=== PATIENT | female | born 1940 | race Caucasian/White ===

== ENCOUNTER 2017-05-19 18:47 | Emergency (ER) | payer OTHER ==
[2017-05-19] MEDS ORDERED: ONDANSETRON 4 MG/2 ML VIAL ONE (19:55)
[2017-05-19 20:14] LABS: Absolute Lymphocytes (CBC) 0.6 K/uL (0.7-4.9); Absolute Monocytes 0.3 K/uL (0.1-1.3); Absolute Neutrophil 7.2 K/uL (1.8-8.0); Basophils % 0.8 % (0-1.3); Eosinophils % 0.1 % (0-4.4); Hematocrit 33.1 % (36.0-45.0); Lymphocytes % 7.5 % (15.3-44.8); MCH 23.8 pg (27.0-35.0); MCV 75.3 fL (80-100); MPV 7.9 fL (7.6-11.3); Monocytes % 3.6 % (3.3-12.3); RBC Red Blood Cell Count 4.39 M/uL (3.86-4.86)
[2017-05-19 20:18] LABS: Protime INR 1.2
[2017-05-19 20:20] LABS: Potassium 4.1 mEq/L (3.6-5.0)
[2017-05-19 20:28] LABS: Albumin 3.3 g/dL (3.2-5.5); Bilirubin Direct 0.5 mg/dL (0-0.2); Bilirubin Total 1.3 mg/dL (0.3-1.2); Magnesium 1.9 mg/dL (1.8-2.5); Protein, Total 6.8 g/dL (6.0-8.3)
--- NOTE | 2017-05-19 20:48 | RAD REPORT ---
EXAM DESCRIPTION: Marie Single View05/19/2017 8:26 pm CLINICAL HISTORY: sob COMPARISON: May 09 FINDINGS: Small bilateral pleural effusions are present. Mild bilateral interstitial lung opacities are seen. The heart is mildly to moderately enlarged. IMPRESSION: Mild CHF
[2017-05-19 20:53] LABS: Urine Blood TRACE (NEG); Urine Glucose NEGATIVE (NEG); Urine Protein TRACE (NEG); Urine Specific Gravity 1.025 (1.005-1.030); Urine pH 6.5 (5.0-7.0)
[2017-05-19 20:57] LABS: Blood Morphology Comment NOT SEEN (NOT SEEN); Platelet Estimate ADEQ; Urine White Blood Cell Casts OK
[2017-05-19] MEDS ORDERED: FUROSEMIDE 20 MG/ 2ML VIAL ONE (21:30)
[2017-05-19] MEDS ORDERED: FUROSEMIDE 40 MG/4 ML VIAL ONE (21:30)
--- NOTE | 2017-05-19 22:01 | ER ---
Nurse's Notes [facility] Name: Haleigh Gutierrez Age: 77 yrs Sex: Female : 1940 Arrival Date: 05/19/2017 Time: 18:48 Bed 14 Private MD: Conner Landis Diagnosis: Chronic combined systolic (congestive) and diastolic (congestive) heart failure Presentation: 05/19 18:51 Presenting complaint: Patient states: N/V since 1400 today. Denies pain/diarrhea. hb Recent cardiac stents 05/10. Transition of care: patient was not received from another setting of care. Onset of symptoms was May 19, 2017. Care prior to arrival: None. 18:51 Method Of Arrival: Ambulatory hb 18:51 Acuity: WALT 3 hb Historical: - Allergies: 18:54 Amoxicillin; hb 18:54 PENICILLINS; hb 21:36 Augmentin; aa1 - Home Meds: 18:54 Advair Diskus 100-50 mcg/dose Inhl dsdv 1 puff 2 times per day [Active]; buspirone 10 hb mg Oral tab 1 tab 2 times per day [Active]; lisinopril 5 mg Oral tab 1 tab once daily [Active]; ProAir HFA inhalation [Active]; rosuvastatin 20 mg Oral tab 1 tab once daily [Active]; - PMHx: 18:54 Hypertension; COPD; hb - PSHx: 18:54 collapsed lung; bladder surgery; Hysterectomy; Heart stents; hb - Immunization history:: Adult Immunizations up to date. - Social history:: Smoking status: Patient/guardian denies using tobacco. Screenin:25 Abuse screen: Denies threats or abuse. Denies injuries from another. Nutritional aa1 screening: No deficits noted. Tuberculosis screening: No symptoms or risk factors identified. Fall Risk None identified. Assessment: 19:25 General: Appears in no apparent distress. comfortable, Behavior is calm, cooperative, aa1 appropriate for age. Pain: Denies pain. Neuro: Level of Consciousness is awake, alert, obeys commands, Oriented to person, place, time, situation, Moves all extremities. Full function Gait is steady, Speech is normal. Cardiovascular: Heart tones S1 S2 present Rhythm is regular. Respiratory: Reports shortness of breath on exertion Airway is patent Respiratory effort is even, unlabored, Respiratory pattern is regular, symmetrical, Breath sounds are clear bilaterally. GI: Abdomen is non-distended, Abd is soft and non tender X 4 quads. Reports nausea, vomiting, Patient currently denies abdominal pain. : No signs and/or symptoms were reported regarding the genitourinary system. EENT: No signs and/or symptoms were reported regarding the EENT system. Derm: Skin is intact, is healthy with good turgor, Skin is pink, warm \T\ dry. Musculoskeletal: Circulation, motion, and sensation intact. Capillary refill < 3 seconds, Swelling present in right foot and left foot. 20:30 Reassessment: Patient appears in no apparent distress at this time. Patient and/or aa1 family updated on plan of care and expected duration. Pain level reassessed. Patient is alert, oriented x 3, equal unlabored respirations, skin warm/dry/pink. Awaiting provider reassessment. 21:22 Reassessment: Patient appears in no apparent distress at this time. Patient and/or aa1 family updated on plan of care and expected duration. Pain level reassessed. Patient is alert, oriented x 3, equal unlabored respirations, skin warm/dry/pink. PA at bedside discussing results with pt \T\ family Patient states feeling better. 22:12 Reassessment: Patient appears in no apparent distress at this time. Patient is alert, aa1 oriented x 3, equal unlabored respirations, skin warm/dry/pink. Discussed d/c \T\ f/u instruction with pt \T\ family; denies questions or concerns Patient denies pain at this time. Patient states feeling better. Vital Signs: 18:54 BP 163 / 86; Pulse 76; Resp 18; Temp 98.6; Pulse Ox 96% on R/A; Weight 70.31 kg; Height hb 5 ft. 7 in. (170.18 cm); Pain 0/10; 19:25 BP 173 / 69; Pulse 79; Resp 20; Pulse Ox 95% on R/A; Pain 0/10; aa1 20:30 BP 137 / 75; Pulse 83; Resp 18; Pulse Ox 92% on R/A; Pain 0/10; aa1 21:28 BP 146 / 78; Pulse 87; Resp 20; Pulse Ox 92% on R/A; Pain 0/10; aa1 22:12 BP 157 / 73; Pulse 81; Resp 18; Temp 98.5; Pulse Ox 95% on R/A; Pain 0/10; aa1 18:54 Body Mass Index 24.28 (70.31 kg, 170.18 cm) hb ED Course: 18:48 Patient arrived in ED. as 18:49 Conner Landis MD is Private Physician. as 18:53 Triage completed. hb 18:54 Arm band placed on right wrist. hb 19:00 Jose Fry PA is PHCP. jr8 19:00 Keanu Sneed MD is Attending Physician. jr8 19:25 Patient has correct armband on for positive identification. Placed in gown. Bed in low aa1 position. Call light in reach. surveillance system monitor on. Pulse ox on. NIBP on. 19:32 Deidra Ignacio RN is Primary Nurse. aa1 19:48 Urine collected: clean catch specimen, noman colored, EKG done, by ED staff, reviewed cb2 by Jose NICHOLE. 19:55 Initial lab(s) drawn, by mi, sent to lab. Inserted saline lock: 20 gauge in left aa1 antecubital area, using aseptic technique. Blood collected. 20:25 X-ray completed. Portable x-ray completed in exam room. Patient tolerated procedure la2 well. 22:00 Pepito Perla MD is Referral Physician. jr8 22:12 No provider procedures requiring assistance completed. IV discontinued, intact, aa1 bleeding controlled, No redness/swelling at site. Pressure dressing applied. Administered Medications: 19:55 Drug: Zofran 4 mg Route: IVP; Site: left antecubital; aa1 21:19 Follow up: Response: Vomiting decreased aa1 21:18 Drug: Lasix 60 mg Route: IVP; Site: left antecubital; aa1 22:12 Follow up: Response: No adverse reaction aa1 Outcome: 22:00 Discharge ordered by . jr8 22:12 Discharged to home ambulatory, with family. aa1 22:12 Condition: good 22:12 Discharge instructions given to patient, family, Instructed on discharge instructions, follow up and referral plans. medication usage, Demonstrated understanding of instructions, follow-up care, medications. 22:14 Patient left the ED. aa1 Signatures: Deidra Ignacio RN RN aa1 Ramon, Jose Rangel PA PA jr8 Linda Torres, MARK RN Lennox Haque Leslie la2 Corrections: (The following items were deleted from the chart) 18:54 Allergies: amoxicillin trihydrate; aa1 18:54 Allergies: potassium clavulanate; aa1
--- NOTE | 2017-05-19 22:01 | EDPHYS ---
Physician Documentation [facility] Name: Haleigh Gutierrez Age: 77 yrs Sex: Female : 1940 Arrival Date: 05/19/2017 Time: 18:48 Bed 14 Private MD: Conner Landis ED Physician Keanu nSeed HPI: 05/19 19:31 This 77 yrs old Female presents to ER via Ambulatory with complaints of Feet jr8 Swelling, Vomiting. 19:31 Patient stated that for the past couple of days has had increased shortness of breath. jr8 Stated that her lower extremities have been swelling more as well. Today had sudden onset n/v without abdominal pain, fevers, diarrhea. Stated that she had heart cath done on the of this month . Severity of symptoms: At their worst the symptoms were moderate in the emergency department the symptoms are unchanged. The patient has not experienced similar symptoms in the past. The patient has not recently seen a physician. Historical: - Allergies: 18:54 Amoxicillin; hb 18:54 PENICILLINS; hb 21:36 Augmentin; aa1 - Home Meds: 18:54 Advair Diskus 100-50 mcg/dose Inhl dsdv 1 puff 2 times per day [Active]; buspirone 10 hb mg Oral tab 1 tab 2 times per day [Active]; lisinopril 5 mg Oral tab 1 tab once daily [Active]; ProAir HFA inhalation [Active]; rosuvastatin 20 mg Oral tab 1 tab once daily [Active]; - PMHx: 18:54 Hypertension; COPD; hb - PSHx: 18:54 collapsed lung; bladder surgery; Hysterectomy; Heart stents; hb - Immunization history:: Adult Immunizations up to date. - Social history:: Smoking status: Patient/guardian denies using tobacco. ROS: 19:31 Eyes: Negative for injury, pain, redness, and discharge, ENT: Negative for injury, jr8 pain, and discharge, Neck: Negative for injury, pain, and swelling, Back: Negative for injury and pain, MS/Extremity: Negative for injury and deformity, Skin: Negative for injury, rash, and discoloration, Neuro: Negative for headache, weakness, numbness, tingling, and seizure. 19:31 Cardiovascular: Positive for chest pain, edema, Negative for orthopnea, palpitations, paroxysmal nocturnal dyspnea. 19:31 Respiratory: Positive for dyspnea on exertion, shortness of breath. 19:31 Abdomen/GI: Positive for nausea and vomiting, Negative for abdominal pain, diarrhea, constipation, abdominal cramps, abdominal distension, anorexia, dysphagia, hematemesis, black/tarry stool, rectal pain, rectal bleeding, bowel incontinence, flatulence. Exam: 19:31 Eyes: Pupils equal round and reactive to light, extra-ocular motions intact. Lids and jr8 lashes normal. Conjunctiva and sclera are non-icteric and not injected. Cornea within normal limits. Periorbital areas with no swelling, redness, or edema. ENT: Nares patent. No nasal discharge, no septal abnormalities noted. Tympanic membranes are normal and external auditory canals are clear. Oropharynx with no redness, swelling, or masses, exudates, or evidence of obstruction, uvula midline. Mucous membranes moist. Neck: Trachea midline, no thyromegaly or masses palpated, and no cervical lymphadenopathy. Supple, full range of motion without nuchal rigidity, or vertebral point tenderness. No Meningismus. Cardiovascular: Regular rate and rhythm with a normal S1 and S2. No gallops, murmurs, or rubs. Normal PMI, no JVD. No pulse deficits. 1+ bilateral pitting edema noted to lower extremities up to mid tibial level Respiratory: Lungs have equal breath sounds bilaterally, clear to auscultation and percussion. No rales, rhonchi or wheezes noted. No increased work of breathing, no retractions or nasal flaring. Abdomen/GI: Soft, non-tender, with normal bowel sounds. No distension or tympany. No guarding or rebound. No evidence of tenderness throughout. Back: No spinal tenderness. No costovertebral tenderness. Full range of motion. Skin: Warm, dry with normal turgor. Normal color with no rashes, no lesions, and no evidence of cellulitis. MS/ Extremity: Pulses equal, no cyanosis. Neurovascular intact. Full, normal range of motion. Neuro: Awake and alert, GCS 15, oriented to person, place, time, and situation. Cranial nerves II-XII grossly intact. Motor strength 5/5 in all extremities. Sensory grossly intact. Cerebellar exam normal. Normal gait. Vital Signs: 18:54 BP 163 / 86; Pulse 76; Resp 18; Temp 98.6; Pulse Ox 96% on R/A; Weight 70.31 kg; Height hb 5 ft. 7 in. (170.18 cm); Pain 0/10; 19:25 BP 173 / 69; Pulse 79; Resp 20; Pulse Ox 95% on R/A; Pain 0/10; aa1 20:30 BP 137 / 75; Pulse 83; Resp 18; Pulse Ox 92% on R/A; Pain 0/10; aa1 21:28 BP 146 / 78; Pulse 87; Resp 20; Pulse Ox 92% on R/A; Pain 0/10; aa1 22:12 BP 157 / 73; Pulse 81; Resp 18; Temp 98.5; Pulse Ox 95% on R/A; Pain 0/10; aa1 18:54 Body Mass Index 24.28 (70.31 kg, 170.18 cm) hb MDM: 19:00 Patient medically screened. [facility] 21:58 Data reviewed: vital signs, nurses notes, lab test result(s), EKG, radiologic studies, [facility] plain films, and as a result, I will discharge patient. Data interpreted: Pulse oximetry: on room air is 92 %. Interpretation: normal. Counseling: I had a detailed discussion with the patient and/or guardian regarding: the historical points, exam findings, and any diagnostic results supporting the discharge/admit diagnosis, lab results, radiology results, the need for outpatient follow up, a aligning inspector, to return to the emergency department if symptoms worsen or persist or if there are any questions or concerns that arise at home. ED course: Patient in no acute respiratory distress. Oxygen Saturation between 92 an 94% which is normal for her. Not requiring oxygen while in ED. Can speak in full sentences without any problem. Lung sounds clear to auscultation. Mild pedal edema. IV lasix given. Counseled on sodium and fluid restriction which patient had not been doing.Will send home with close observation. If she were to worsen to come back to ED. Has De Icer Finisher Dr. Perla. Will call him on Sunday . 05/19 19:29 Order name: Basic Metabolic Panel [facility] 05/19 19:29 Order name: BNP [facility] 05/19 19:29 Order name: CBC with Diff [facility] 05/19 19:29 Order name: CPK [facility] 05/19 19:29 Order name: LFT's [facility] 05/19 19:29 Order name: Magnesium [facility] 05/19 19:29 Order name: PT-INR [facility] 05/19 19:29 Order name: Ptt, Activated [facility] 05/19 19:29 Order name: Troponin (emerg Dept Use Only) [facility] 05/19 20:02 Order name: Urine Dipstick--Ancillary (enter results) [facility] 05/19 20:21 Order name: Basic Metabolic Panel; Complete Time: 20:33 EDMS 05/19 20:23 Order name: Protime (+INR); Complete Time: 20:23 EDMS 05/19 20:23 Order name: PTT, Activated Partial Thromb; Complete Time: 20:23 EDMS 05/19 20:23 Order name: CBC with Automated Diff; Complete Time: 21:14 EDMS 05/19 19:29 Order name: XRAY Chest (1 view) [facility] 05/19 19:29 Order name: EKG; Complete Time: 19:30 [facility] 05/19 19:29 Order name: Cardiac monitoring; Complete Time: 19:58 [facility] 05/19 19:29 Order name: EKG - Nurse/Tech; Complete Time: 19:58 [facility] 05/19 19:29 Order name: IV Saline Lock; Complete Time: 20:10 [facility] 05/19 19:29 Order name: Labs collected and sent; Complete Time: 20:10 [facility] 05/19 20:27 Order name: Troponin (Emerg Dept Use Only); Complete Time: 20:33 EDMS 05/19 20:30 Order name: BNP B-Type Natriuretic Peptide; Complete Time: 20:33 EDMS 05/19 20:32 Order name: Liver (Hepatic) Function; Complete Time: 20:33 EDMS 05/19 20:32 Order name: Creatine Phosphokinase; Complete Time: 20:33 EDMS 05/19 20:32 Order name: Magnesium; Complete Time: 20:33 EDMS 05/19 20:49 Order name: RAD; Complete Time: 20:51 EDMS 05/19 20:53 Order name: Urine Dipstick-Ancillary; Complete Time: 20:54 EDMS 05/19 20:58 Order name: CBC Smear Scan; Complete Time: 21:14 EDMS 05/19 19:29 Order name: O2 Per Protocol; Complete Time: 19:58 [facility] 05/19 19:29 Order name: O2 Sat Monitoring; Complete Time: :58 jr8 05/19 19:29 Order name: Urine Dipstick-Ancillary (obtain specimen); Complete Time: :58 jr8 Administered Medications: 19:55 Drug: Zofran 4 mg Route: IVP; Site: left antecubital; aa1 21:19 Follow up: Response: Vomiting decreased aa1 21:18 Drug: Lasix 60 mg Route: IVP; Site: left antecubital; aa1 22:12 Follow up: Response: No adverse reaction aa1 Disposition: 05/19/17 22:00 Discharged to Home. Impression: Chronic combined systolic (congestive) and diastolic (congestive) heart failure. - Condition is Stable. - Discharge Instructions: Heart Failure, Form - Daily Weight Record. - Medication Reconciliation Form, Thank You Letter, Antibiotic Education, Prescription Opioid Use form. - Follow up: Pepito Perla MD; When: 1 - 2 days; Reason: Recheck today's complaints, Continuance of care, Re-evaluation by your physician. - Problem is new. - Symptoms have improved. Addendum: 05/21/2017 07:59 Co-signature as Attending Physician, Keanu Sneed MD I agree with the assessment and c benjamin plan of care. Signatures: Dispatcher [employer] EDMS Deidra Ignacio RN RN aa1 Keanu Sneed MD MD cha Roszak, Josh, PA PA jr8 Linda Torres RN RN hb Corrections: (The following items were deleted from the chart) 05/19 20:54 19:31 Cardiovascular: Positive for edema, Negative for chest pain, orthopnea, jr8 palpitations, paroxysmal nocturnal dyspnea, jr8 21:36 18:54 Allergies: amoxicillin trihydrate; hb aa1 21:36 18:54 Allergies: potassium clavulanate; hb aa1 22:03 21:58 ED course: Patient in no acute respiratory distress. Oxygen Saturation between 92 jr8 an 94% which is normal for her. Not requiring oxygen while in ED. Can speak in full sentences without any problem. Lung sounds clear to auscultation. Mild pedal edema. IV lasix given. Will send home with close observation. If she were to worsen to come back to ED. Has De Icer Finisher Dr. Perla. Will call him on Sunday morning . jr8
[2017-05-19 22:30] VITALS: BP 157/73; TEMP 98.5; O2SAT 95
--- NOTE | 2017-05-20 05:13 | EKG ---
Test Date: 2017-05-19 Test Time: 19:40:28 Staining Machine Operator: TIFFANI MEASUREMENT RESULTS: Intervals: Rate: 76 NM: 148 QRSD: 94 QT: 424 QTc: 477 [place]: P: 60 NM: 148 QRS: -20 T: 236 INTERPRETIVE STATEMENTS: Normal sinus rhythm Possible Left atrial enlargement Possible Anterior infarct, age undetermined T wave abnormality, consider inferolateral ischemia Abnormal ECG Compared to ECG 05/11/2017 09:03:51 no significant change from previous ECG Electronically Signed On 05-20-17 05:13:21 CDT by Misael Sierra
== END 2017-05-19 22:14 | disposition home or self-care (01) ==
LOC: ER 18:47
DX: I50.40 Unspecified combined systolic (congestive) and diastolic (congestive) heart failure (principal); I10 Essential (primary) hypertension; J44.9 Chronic obstructive pulmonary disease, unspecified; Z88.0 Allergy status to penicillin; Z88.1 Allergy status to other antibiotic agents; Z95.818 Presence of other cardiac implants and grafts
CPT/HCPCS: 36415; 71045; 80048; 80076; 81003; 82550; 83735; 83880; 84484; 85025; 85610; 85730; 93005; 96374; 96375; 99284; J1940; J2405

== ENCOUNTER 2017-06-14 10:44 | Inpatient (IN) | payer OTHER ==
[2017-06-14] MEDS ORDERED: ASPIRIN 81 MG CHEWABLE TABLET ONE (13:22)
[2017-06-14] MEDS ORDERED: NA CHLORIDE 0.9% 500 ML ONE (13:22)
--- NOTE | 2017-06-14 13:41 | RAD REPORT ---
EXAM DESCRIPTION: VAS - Lower Extremity Artery [employer] - 06/14/2017 1:32 pm CLINICAL HISTORY: Left lower leg pain COMPARISON: None. FINDINGS: Doppler interrogation of the left lower extremity arterial system was performed. Monophasic waveforms are present throughout the left lower extremity arterial system. Peak systolic a mplitudes are blunted throughout. Occlusion is not seen. IMPRESSION: Diffuse and blunted monophasic waveforms throughout the left lower extremity arterial sy stem. This likely indicates significant inflow disease.
--- NOTE | 2017-06-14 13:49 | RAD REPORT ---
EXAM DESCRIPTION: RAD - Chest Single View - 06/14/2017 1:44 pm CLINICAL HISTORY: Cough COMPARISON: 05/19/2017 FINDINGS: Portable technique limits examination quality. Mild interstitial pulmonary edema suspected. The heart is mildly moderately enlarged. No displaced fr actures. IMPRESSION: Mild CHF.
[2017-06-14 14:10] LABS: Absolute Monocytes 0.7 K/uL (0.1-1.3); Absolute Neutrophil 11.6 K/uL (1.8-8.0); Basophils % 0.5 % (0-1.3); Eosinophils % 0.1 % (0-4.4); Hematocrit 23.7 % (36.0-45.0); Lymphocytes % 7.5 % (15.3-44.8); MCH 24.5 pg (27.0-35.0); MCV 79.7 fL (80-100); MPV 7.7 fL (7.6-11.3); Monocytes % 5.3 % (3.3-12.3); RBC Red Blood Cell Count 2.97 M/uL (3.86-4.86)
[2017-06-14 14:13] LABS: Potassium 3.2 mEq/L (3.6-5.0)
[2017-06-14 14:14] LABS: Protime INR 1.19
[2017-06-14 14:19] LABS: Albumin 2.9 g/dL (3.2-5.5); Bilirubin Direct 0.3 mg/dL (0-0.2); Bilirubin Total 0.9 mg/dL (0.3-1.2); Magnesium 1.8 mg/dL (1.8-2.5); Protein, Total 6.5 g/dL (6.0-8.3)
[2017-06-14 14:22] LABS: CKMB Creatine Kinase MB 3.4 ng/ml (0.3-4.0)
[2017-06-14 14:27] LABS: Anisocytosis 2+; Blood Morphology Comment NOTED (NOT SEEN); Platelet Estimate ADEQ; Urine White Blood Cell Casts OK
[2017-06-14] MEDS ORDERED: PANTOPRAZOLE 40 MG INJ ONE (14:40)
[2017-06-14] MEDS ORDERED: POTASSIUM 25 MEQ EFFERV TAB ONE (14:40)
--- NOTE | 2017-06-14 14:55 | ER ---
Nurse's Notes [facility] Name: Haleigh Gutierrez Age: 77 yrs Sex: Female : 1940 Arrival Date: 06/14/2017 Time: 10:46 Bed 8 Private MD: Conner Landis Diagnosis: Other peripheral vascular diseases-left leg;Unspecified combined systolic (congestive) and diastolic (congestive) heart failure;Cardiomegaly;Hypokalemia;Gastrointestinal hemorrhage, unspecified;Anemia, unspecified Presentation: 06/14 11:01 Presenting complaint: Patient states: Left leg pain that started 2 days ago. Transition aj of care: patient was not received from another setting of care. Onset of symptoms was June 12, 2017. Initial Sepsis Screen: Does the patient meet any 2 criteria? No. Patient's initial sepsis screen is negative. Does the patient have a suspected source of infection? No. Patient's initial sepsis screen is negative. Care prior to arrival: None. 11:01 Method Of Arrival: Ambulatory aj 11:01 Acuity: WALT 3 aj Triage Assessment: 11:04 General: Appears in no apparent distress. comfortable, Behavior is calm, cooperative, aj appropriate for age. Pain: Complains of pain in left leg Pain currently is 0 out of 10 on a pain scale. at worst was 8 out of 10 on a pain scale. Aggravated by weight bearing. Neuro: Level of Consciousness is awake, alert, obeys commands, Oriented to person, place, time, situation, Appropriate for age. Respiratory: Airway is patent Respiratory effort is even, unlabored, Respiratory pattern is regular, symmetrical. Derm: Skin is intact, is healthy with good turgor, Skin is pink, warm \\T\\ dry. normal. Musculoskeletal: Reports pain in left leg. Historical: - Allergies: 11:04 Amoxicillin; aj 11:04 Augmentin; aj 11:04 PENICILLINS; aj 11:04 Plavix; aj - Home Meds: 11:04 Advair Diskus 100-50 mcg/dose Inhl dsdv 1 puff 2 times per day [Active]; buspirone 10 aj mg Oral tab 1 tab 2 times per day [Active]; lisinopril 5 mg Oral tab 1 tab once daily [Active]; ProAir HFA inhalation [Active]; rosuvastatin 20 mg Oral tab 1 tab once daily [Active]; - PMHx: 11:04 COPD; Hypertension; PVD; CHF; aj - PSHx: 11:04 collapsed lung; bladder surgery; Hysterectomy; Heart stents; aj - Immunization history:: Adult Immunizations up to date. - Social history:: Smoking status: Patient/guardian denies using tobacco, the patient reports quitting approximately .4 years ago. - Family history:: not pertinent. Screenin:55 Abuse screen: Denies threats or abuse. Nutritional screening: No deficits noted. tw2 Tuberculosis screening: No symptoms or risk factors identified. Fall Risk None identified. Assessment: 12:36 Reassessment: pt ambulates to room, NAD. tw2 12:40 General: Appears in no apparent distress. well groomed, Behavior is calm, cooperative, tw2 appropriate for age. Pain: Complains of pain in left leg. Neuro: Level of Consciousness is awake, alert, obeys commands, Oriented to person, place, time, situation. Cardiovascular: Denies chest pain, shortness of breath, Heart tones S1 S2 Capillary refill < 3 seconds Patient's skin is warm and dry. Respiratory: Airway is patent Respiratory effort is even, unlabored, Respiratory pattern is regular, symmetrical, Breath sounds are clear bilaterally. GI: No signs and/or symptoms were reported involving the gastrointestinal system. Abdomen is flat, Bowel sounds present X 4 quads. : No signs and/or symptoms were reported regarding the genitourinary system. EENT: No signs and/or symptoms were reported regarding the EENT system. Derm: Bruising that is bright red, dark purple, green, yellow, on right arm and left arm. Derm: Skin is fragile, is thin, Skin temperature is warm. Musculoskeletal: Range of motion: intact in all extremities. 12:53 Reassessment: Patient appears in no apparent distress at this time. No changes from tw2 previously documented assessment. Patient and/or family updated on plan of care and expected duration. Pain level reassessed. Patient is alert, oriented x 3, equal unlabored respirations, skin warm/dry/pink. pt states "it hurts when i get up and walk and i know my arteries are clogged up and i just had a stent 3 weeks ago, but they want to be sure i dont have a clot", provider notified. 13:27 Reassessment: pt not available for line and labs at this time, pt in US. tw2 13:53 Reassessment: Patient appears in no apparent distress at this time. No changes from tw2 previously documented assessment. Patient and/or family updated on plan of care and expected duration. Pain level reassessed. Patient is alert, oriented x 3, equal unlabored respirations, skin warm/dry/pink. 15:09 Reassessment: pillow given for comfort. ss 15:10 Reassessment: Patient appears in no apparent distress at this time. No changes from tw2 previously documented assessment. Patient and/or family updated on plan of care and expected duration. Pain level reassessed. Patient is alert, oriented x 3, equal unlabored respirations, skin warm/dry/pink. Vital Signs: 11:04 BP 110 / 61; Pulse 100; Resp 18; Temp 98.5; Pulse Ox 97% on R/A; Weight 62.14 kg; aj Height 5 ft. 6 in. (167.64 cm); Pain 0/10; 12:56 BP 128 / 72; Pulse 98; Resp 17; Pulse Ox 97% on R/A; tw2 13:52 BP 128 / 56; Pulse 100; Resp 17; Pulse Ox 98% on R/A; tw2 15:00 BP 126 / 72; Pulse 97; Resp 17; Pulse Ox 97% on R/A; tw2 15:40 BP 128 / 52; Pulse 98; Resp 19; Pulse Ox 99% on R/A; tw2 11:04 Body Mass Index 22.11 (62.14 kg, 167.64 cm) aj ED Course: 10:46 Patient arrived in ED. rg4 10:47 Conner Landis MD is Private Physician. rg4 11:03 Triage completed. aj 11:04 Arm band placed on left wrist. Patient placed in waiting room, Patient notified of wait aj time. 12:36 Mayra Rutledge, MARK is Primary Nurse. tw2 12:50 Keanu Sneed MD is Attending Physician. [facility] 12:55 Call light in reach. Side rails up X 1. Pulse ox on. NIBP on. tw2 12:56 No provider procedures requiring assistance completed. tw2 13:25 Patient taken to ultrasound. via stretcher. aa4 13:32 US Lower Extremity (Artery [facility] Ltd) In Process Unspecified. EDMS 13:32 Ultrasound completed. Patient tolerated well. Patient moved back from ultrasound. aa4 13:44 XRAY Chest (1 view) In Process Unspecified. EDMS 13:51 Inserted saline lock: 20 gauge in left antecubital area, using aseptic technique. Blood hb collected. 14:35 Type And Screen Sent. tw2 14:50 Conner Landis MD is Hospitalizing Provider. sukhjinder 14:59 EKG done, by mental health tech. reviewed by Keanu Sneed MD. at1 15:47 Awaiting: attempted to call report at this time, was told that MARK Sanon needed to tw2 take a pt to ICU and will have to call me back. 16:06 Echocardiogram performed. at1 16:10 Patient admitted, IV remains in place. tw2 Administered Medications: Discontinued: NS 0.9% 1000 ml IV at 125 ml/hr continuous 13:53 Drug: Aspirin 162 mg Route: PO; tw2 14:36 Follow up: Response: No adverse reaction tw2 13:54 Drug: NS 0.9% 1000 ml Route: IV; Rate: 125 ml/hr; Site: left antecubital; tw2 16:13 Follow up: IV Status: Infusion continued upon admission tw2 14:50 Drug: ProTONIX 40 mg Route: IVP; Site: left antecubital; tw2 15:40 Follow up: Response: No adverse reaction tw2 14:51 Drug: Potassium Effervescent Tablet 25 mEq Route: PO; tw2 15:33 Follow up: Response: No adverse reaction tw2 15:06 Drug: Lasix 20 mg Route: IVP; Site: left antecubital; tw2 15:39 Follow up: Response: No adverse reaction tw2 Point of Care Testing: Guaiac: 14:50 Stool Guaiac: Positive; Stool Hemoccult Control: Pass; sukhjinder Outcome: 14:53 Decision to Hospitalize by Provider. sukhjinder 16:10 Admitted to Med/surg room 201, with chart, Report called to MARK Sanon tw2 16:10 Condition: stable 16:10 Instructed on the need for admit. 16:18 Admitted to Med/surg accompanied by tech. tw2 16:18 Patient left the ED. tw2 Signatures: Dispatcher [employer] EDMaty Mott RN RN aj Anderson, Corey, MD MD cha Frazier, Amanda aa4 Lou Soares RN RN ss Maty moeller, [place] supervisor EKG Tat1 Linda Torres RN RN Mayra Rutledge RN RN tw2 Fela George rg4 Corrections: (The following items were deleted from the chart) 11:06 11:04 Pulse 100bpm; Resp 18bpm; Pulse Ox 97% RA; Temp 98.5F; 62.14 kg; Height 5 ft. 6 aj in.; BMI: 22.1; Pain 0/10; aj
--- NOTE | 2017-06-14 14:55 | EDPHYS ---
Physician Documentation [facility] Name: Haleigh Gutierrez Age: 77 yrs Sex: Female : 1940 Arrival Date: 06/14/2017 Time: 10:46 Bed 8 Private MD: Conner Landis ED Physician Keanu Sneed HPI: 06/14 13:19 This 77 yrs old Female presents to ER via Ambulatory with complaints of Leg sukhjinder Pain. 13:19 The patient presents with pain. The complaints affect the lateral aspect of left thigh, sukhjinder lateral aspect of left calf, left hamstring, left calf, medial aspect of left thigh, medial aspect of left calf, left quadriceps and left davey. Context: The problem was sustained at home. Onset: The symptoms/episode began/occurred 1 week(s) ago. Modifying factors: The symptoms are alleviated by elevating leg. Associated signs and symptoms: The patient has no apparent associated signs or symptoms. Severity of symptoms: At their worst the symptoms were mild, moderate, in the emergency department the symptoms are unchanged. The patient has not experienced similar symptoms in the past. Historical: - Allergies: 11:04 Amoxicillin; aj 11:04 Augmentin; aj 11:04 PENICILLINS; aj 11:04 Plavix; aj - Home Meds: 11:04 Advair Diskus 100-50 mcg/dose Inhl dsdv 1 puff 2 times per day [Active]; buspirone 10 aj mg Oral tab 1 tab 2 times per day [Active]; lisinopril 5 mg Oral tab 1 tab once daily [Active]; ProAir HFA inhalation [Active]; rosuvastatin 20 mg Oral tab 1 tab once daily [Active]; - PMHx: 11:04 COPD; Hypertension; PVD; CHF; aj - PSHx: 11:04 collapsed lung; bladder surgery; Hysterectomy; Heart stents; aj - Immunization history:: Adult Immunizations up to date. - Social history:: Smoking status: Patient/guardian denies using tobacco, the patient reports quitting approximately .4 years ago. - Family history:: not pertinent. ROS: 13:19 Constitutional: Negative for fever, chills, and weight loss, Eyes: Negative for injury, sukhjinder pain, redness, and discharge, ENT: Negative for injury, pain, and discharge, Neck: Negative for injury, pain, and swelling, Cardiovascular: Negative for chest pain, palpitations, and edema, Respiratory: Negative for shortness of breath, cough, wheezing, and pleuritic chest pain, Abdomen/GI: Negative for abdominal pain, nausea, vomiting, diarrhea, and constipation, Back: Negative for injury and pain, : Negative for injury, bleeding, discharge, and swelling, Skin: Negative for injury, rash, and discoloration, Neuro: Negative for headache, weakness, numbness, tingling, and seizure, Psych: Negative for depression, anxiety, suicide ideation, homicidal ideation, and hallucinations, Allergy/Immunology: Negative for hives, rash, and allergies, Endocrine: Negative for neck swelling, polydipsia, polyuria, polyphagia, and marked weight changes, Hematologic/Lymphatic: Negative for swollen nodes, abnormal bleeding, and unusual bruising. 13:19 MS/extremity: Positive for decreased range of motion. Exam: 13:19 Constitutional: This is a well developed, well nourished patient who is awake, alert, sukhjinder and in no acute distress. Head/Face: Normocephalic, atraumatic. Eyes: Pupils equal round and reactive to light, extra-ocular motions intact. Lids and lashes normal. Conjunctiva and sclera are non-icteric and not injected. Cornea within normal limits. Periorbital areas with no swelling, redness, or edema. ENT: Nares patent. No nasal discharge, no septal abnormalities noted. Tympanic membranes are normal and external auditory canals are clear. Oropharynx with no redness, swelling, or masses, exudates, or evidence of obstruction, uvula midline. Mucous membranes moist. Neck: Trachea midline, no thyromegaly or masses palpated, and no cervical lymphadenopathy. Supple, full range of motion without nuchal rigidity, or vertebral point tenderness. No Meningismus. Chest/axilla: Normal chest wall appearance and motion. Nontender with no deformity. No lesions are appreciated. Cardiovascular: Regular rate and rhythm with a normal S1 and S2. No gallops, murmurs, or rubs. Normal PMI, no JVD. No pulse deficits. Respiratory: Lungs have equal breath sounds bilaterally, clear to auscultation and percussion. No rales, rhonchi or wheezes noted. No increased work of breathing, no retractions or nasal flaring. Abdomen/GI: Soft, non-tender, with normal bowel sounds. No distension or tympany. No guarding or rebound. No evidence of tenderness throughout. Back: No spinal tenderness. No costovertebral tenderness. Full range of motion. Skin: Warm, dry with normal turgor. Normal color with no rashes, no lesions, and no evidence of cellulitis. Neuro: Awake and alert, GCS 15, oriented to person, place, time, and situation. Cranial nerves II-XII grossly intact. Motor strength 5/5 in all extremities. Sensory grossly intact. Cerebellar exam normal. Normal gait. Psych: Awake, alert, with orientation to person, place and time. Behavior, mood, and affect are within normal limits. 13:19 Musculoskeletal/extremity: Pulses: noted to be 1+ in the left femoral artery, left popliteal artery and left posterior tibial artery, Sensation intact. Compartment Syndrome exam of affected extremity: is normal. DVT Exam: no pain, no swelling, no tenderness, negative Homans' sign noted on exam, no appreciated bluish discoloration, no erythema, no increased warmth. Vital Signs: 11:04 BP 110 / 61; Pulse 100; Resp 18; Temp 98.5; Pulse Ox 97% on R/A; Weight 62.14 kg; aj Height 5 ft. 6 in. (167.64 cm); Pain 0/10; 12:56 BP 128 / 72; Pulse 98; Resp 17; Pulse Ox 97% on R/A; tw2 13:52 BP 128 / 56; Pulse 100; Resp 17; Pulse Ox 98% on R/A; tw2 15:00 BP 126 / 72; Pulse 97; Resp 17; Pulse Ox 97% on R/A; tw2 15:40 BP 128 / 52; Pulse 98; Resp 19; Pulse Ox 99% on R/A; tw2 11:04 Body Mass Index 22.11 (62.14 kg, 167.64 cm) aj MDM: 12:50 Patient medically screened. [facility] 13:19 Data reviewed: vital signs, nurses notes, lab test result(s), EKG, radiologic studies, [facility] doppler, plain films. 06/14 13:19 Order name: Basic Metabolic Panel; Complete Time: 14:23 [facility] 06/14 13:19 Order name: BNP; Complete Time: 14:48 [facility] 06/14 13:19 Order name: CBC with Diff; Complete Time: 14:48 [facility] 06/14 13:19 Order name: Ckmb; Complete Time: 14:23 [facility] 06/14 13:19 Order name: CPK; Complete Time: 14:23 [facility] 06/14 13:19 Order name: LFT's; Complete Time: 14:23 [facility] 06/14 13:19 Order name: Magnesium; Complete Time: 14:23 [facility] 06/14 13:19 Order name: PT-INR; Complete Time: 14:18 [facility] 06/14 13:19 Order name: Ptt, Activated; Complete Time: 14:18 [facility] 06/14 13:19 Order name: Troponin (emerg Dept Use Only); Complete Time: 14:23 [facility] 06/14 14:23 Order name: Type And Screen [facility] 06/14 14:27 Order name: CBC Smear Scan; Complete Time: 14:48 [facility] 06/14 15:05 Order name: Hematocrit [facility] 06/14 15:05 Order name: Hemoglobin [facility] 06/14 13:19 Order name: XRAY Chest (1 view); Complete Time: 14:18 [facility] 06/14 13:19 Order name: US Lower Extremity (Artery [facility] Ltd); Complete Time: 14:18 [facility] 06/14 15:05 Order name: Packed RBC Leukored -1 [facility] 06/14 15:05 Order name: Basic Metabolic Panel [facility] 06/14 15:05 Order name: Basic Metabolic Panel EDMS 06/14 15:05 Order name: BNP B-Type Natriuretic Peptide EDMS 06/14 15:05 Order name: BNP B-Type Natriuretic Peptide EDMS 06/14 15:05 Order name: CBC with Automated Diff EDMS 06/14 15:05 Order name: CBC with Automated Diff EDMS 06/14 15:05 Order name: Troponin I EDMS 06/14 15:05 Order name: Troponin I EDMS 06/14 15:05 Order name: Troponin I EDMS 06/14 15:08 Order name: Bb Add On 2 06/14 15:28 Order name: Urine Dipstick--Ancillary (enter results) 2 06/14 15:36 Order name: ABO/RH no charge EDMS 06/14 15:36 Order name: Urine Dipstick-Ancillary EDMS 06/14 13:19 Order name: EKG; Complete Time: 13:19 [facility] 04/19 13:19 Order name: Cardiac monitoring; Complete Time: 13:20 [facility] 06/14 13:19 Order name: EKG - Nurse/Tech; Complete Time: 13:54 [facility] 06/14 13:19 Order name: IV Saline Lock; Complete Time: 13:54 [facility] 06/14 13:19 Order name: Labs collected and sent; Complete Time: 13:54 [facility] 06/14 13:19 Order name: O2 Per Protocol; Complete Time: 13:54 [facility] 06/14 13:19 Order name: O2 Sat Monitoring; Complete Time: 13:20 [facility] 06/14 13:19 Order name: Urine Dipstick-Ancillary (obtain specimen); Complete Time: 15:33 [facility] 06/14 15:04 Order name: 2 GM Sodium [facility] 06/14 15:05 Order name: CONS Physician Consult [facility] 06/14 15:05 Order name: Echo without Doppler (2D) [facility] 06/14 15:05 Order name: Chest Single View [facility] 06/14 15:05 Order name: Chest Single View [facility] 06/14 15:05 Order name: EKG Electrocardiogram [facility] 06/14 15:05 Order name: EKG Electrocardiogram [facility] Administered Medications: Discontinued: NS 0.9% 1000 ml IV at 125 ml/hr continuous 13:53 Drug: Aspirin 162 mg Route: PO; tw2 14:36 Follow up: Response: No adverse reaction tw2 13:54 Drug: NS 0.9% 1000 ml Route: IV; Rate: 125 ml/hr; Site: left antecubital; tw2 16:13 Follow up: IV Status: Infusion continued upon admission tw2 14:50 Drug: ProTONIX 40 mg Route: IVP; Site: left antecubital; tw2 15:40 Follow up: Response: No adverse reaction tw2 14:51 Drug: Potassium Effervescent Tablet 25 mEq Route: PO; tw2 15:33 Follow up: Response: No adverse reaction tw2 15:06 Drug: Lasix 20 mg Route: IVP; Site: left antecubital; tw2 15:39 Follow up: Response: No adverse reaction tw2 Point of Care Testing: Guaiac: 14:50 Stool Guaiac: Positive; Stool Hemoccult Control: Pass; [facility] Disposition: 06/14/17 14:53 Hospitalization ordered by Conner Landis for Inpatient Admission. Preliminary diagnosis are Other peripheral vascular diseases - left leg, Unspecified combined systolic (congestive) and diastolic (congestive) heart failure, Cardiomegaly, Hypokalemia, Gastrointestinal hemorrhage, unspecified, Anemia, unspecified. - Bed requested for Telemetry/MedSurg (Inpatient). - Status is Inpatient Admission. tw2 - Condition is Fair. - Problem is new. - Symptoms have improved. UTI on Admission? No Signatures: Dispatcher [employer] EDMaty Mott RN RN aj Anderson, Corey, MD MD cha Wise, Tara, RN RN tw2 Jana Vivar 2 Corrections: (The following items were deleted from the chart) 16:09 14:23 Blood Transfusion Consent ordered. sukhjinder [facility]
[2017-06-14] MEDS ORDERED: FUROSEMIDE 20 MG/ 2ML VIAL ONE (14:58)
[2017-06-14] MEDS ORDERED: ALBUTEROL 2.5 MG/3 ML NEB SOL NEB PRN (14:59)
[2017-06-14] MEDS ORDERED: ONDANSETRON 4 MG/2 ML VIAL IV PRN (14:59)
[2017-06-14] MEDS ORDERED: IPRATROPIUM BROM 0.5MG/2.5ML NEB PRN (14:59)
[2017-06-14] MEDS ORDERED: SODIUM CHLORIDE 0.9% 10ML INJ IV PRN (15:01)
[2017-06-14 15:35] LABS: Urine Blood TRACE (NEG); Urine Glucose NEGATIVE (NEG); Urine Protein NEGATIVE (NEG); Urine Specific Gravity 1.015 (1.005-1.030); Urine pH 7.5 (5.0-7.0)
[2017-06-14] MEDS ORDERED: NA CHLORIDE 0.9% 250 ML ONE (16:23)
[2017-06-14] MEDS ORDERED: DIPHENHYDRAMINE 50 MG/ML VIAL IV SCH (17:00)
[2017-06-14] MEDS ORDERED: ACETAMINOPHEN 325 MG TABLET PO SCH (17:00)
--- NOTE | 2017-06-14 17:00 | EKG ---
Test Date: 2017-06-14 Test Time: 14:37:24 Trade Show Coordinator: MAREK MEASUREMENT RESULTS: Intervals: Rate: 96 MD: 160 QRSD: 100 QT: 398 QTc: 502 [place]: P: 82 MD: 160 QRS: 58 T: 251 INTERPRETIVE STATEMENTS: Normal sinus rhythm Possible Left atrial enlargement Left ventricular hypertrophy with repolarization abnormality Prolonged QT Abnormal ECG Compared to ECG 05/19/2017 19:40:28 Left ventricular hypertrophy now present Prolonged QT interval now present Myocardial infarct finding no longer present Electronically Signed On 06-14-17 17:00:14 CDT by Misael Sierra
--- NOTE | 2017-06-14 17:21 | P.HP ---
Certification for Inpatient Patient admitted to: Inpatient With expected LOS: >2 Midnights Patient will require the following post-hospital care: None Practitioner: I am a practitioner with admitting privileges, knowledge of patient current condition, hospital course, and medical plan of care. Services: Services provided to patient in accordance with Admission requirements found in Title 42 Section 412.3 of the Code of Federal Regulations Patient History Date of Service: 06/14/17 Primary Care Provider: Sabiha Reason for admission: Lower GI Bleed History of Present Illness: Patient has a history of pvd. Has been worked up in the past by Dr. Perla. For the past few days she has been having increased pain in the Left lower leg. she has been getting worse and came to the ER. She was found to be anemic with a guiac postive stool. The patient was not complaining of any chest pain or shortness of breath. She was recently in the ER with leg swelling. The patient had also been having some constipations. She has been using OTC laxatives for this. Allergies amoxicillin trihydrate [From Augmentin] Allergy (Intermediate, Verified 11:11) Nausea/Vomiting Penicillins Allergy (Intermediate, Verified 05/10/17 11:11) Nausea/Vomiting potassium clavulanate [From Augmentin] Allergy (Intermediate, Verified 05/10/17 11:11) Nausea/Vomiting clopidogrel [From Plavix] Allergy (Unverified 06/14/17 16:21) Unknown amoxicillin [Amoxicillin] Adverse Reaction (Intermediate, Verified 05/10/17 11: 11) diarrhea/vomiting Home Medications: Albuterol Sulfate [Proair Hfa] 1 puff IH DAILY 10/08/16 Rosuvastatin Calcium [Crestor] 20 mg PO BEDTIME 10/08/16 Fluticasone/Vilanterol [Breo Ellipta 100-25 Mcg INH] 1 puff IH DAILY 03/19/17 Umeclidinium [place] [Incruse Ellipta] 1 puff IN DAILY 03/19/17 Bupropion HCl [Wellbutrin Xl] 150 mg PO DAILY #90 tab.er.24h 03/21/17 Furosemide [Lasix] 40 mg PO DAILY #90 tablet 03/21/17 Spironolactone 25 mg PO DAILY #90 tablet 03/21/17 Clopidogrel Bisulfate [Plavix*] 1 tab PO DAILY 05/10/17 - Past Medical/Surgical History Diabetic: No -: Lung collapse-50 yrs ago -: Smoker -: Diverticulitis -: Polyps removed Colon -: COPD -: CHF -: Hysterectomy -: Breast lump removed-left breast -: Bladder surgery - Family History Sister -: Cancer Notes: Breasy Ca - Social History Alcohol use: No CD- Drugs: No Caffeine use: Yes Review of Systems 10-point ROS is otherwise unremarkable General: Malaise Gastrointestinal: Constipation, Melena Musculoskeletal: Leg Pain (left leg pain) Physical Examination - Vital Signs Temperature: 98.5 F Blood Pressure: 128/52 Pulse: 98 Respirations: 19 - Physical Exam General: Alert, In no apparent distress HEENT: Atraumatic, PERRLA, Mucous membr. moist/pink, EOMI, Sclerae nonicteric Neck: Supple, 2+ carotid pulse no bruit, No LAD, Without JVD or thyroid abnormality Respiratory: Clear to auscultation bilaterally, Normal air movement Cardiovascular: Regular rate/rhythm, Normal S1 S2 Gastrointestinal: Normal bowel sounds, No tenderness Musculoskeletal: No tenderness Integumentary: No rashes Neurological: Normal gait, Normal speech, Normal strength at 5/5 x4 extr, Normal tone, Normal affect Lymphatics: No axilla or inguinal lymphadenopathy - Studies Laboratory Data (last 24 hrs) 06/14/17 13:48: PT 14.1 H, INR 1.19, APTT 25.7 06/14/17 13:48: WBC 13.4 H, Hgb 7.3 L*, Hct 23.7 L, Plt Count 462 H 06/14/17 13:48: B-Natriuretic Peptide 3866 H 06/14/17 13:48: Sodium 129 L, Potassium 3.2 L, BUN 18, Creatinine 1.01 H, Glucose 121 H, Magnesium 1.8, Total Bilirubin 0.9, AST 33, ALT 15, Alkaline Phosphatase 69 Assessment and Plan - Problems (Diagnosis) (1) Lower GI bleed Current Visit: Yes Status: Acute Plan: Will consult her regular gi Dr. Lane. check reticulocyte count and iron studies. Will transfuse 1 unit prbc. (2) CHF exacerbation Onset Date: 03/20/17 Current Visit: No Status: Acute (3) HTN (hypertension) Onset Date: 10/09/16 Current Visit: No Status: Acute Plan: Stable will continue home medications Qualifiers: Hypertension type: essential hypertension (4) PVD (peripheral vascular disease) Onset Date: 05/17/17 Current Visit: No Status: Acute Plan: Will consult Dr. Sierra. have held her anticoagulants due to lower gi bleed. (5) COPD (chronic obstructive pulmonary disease) Current Visit: Yes Status: Acute Plan: Has been stable, no wheezing. Has stopped smoking. Will continue home meds Qualifiers: COPD type: chronic bronchitis Chronic bronchitis type: simple Qualified Code(s): J41.0 - Simple chronic bronchitis - Advance Directives Does patient have a Living Will: No Does patient have a Durable POA for Healthcare: No - Code Status/Comfort Care Code Status: Full Code Physician Review: Patient Assessed, Agree with Above Assessment and Plan Critical Care: No Time Spent Managing Pts Care (In Minutes): 55
--- NOTE | 2017-06-14 17:23 | ECHO ---
HEIGHT: 5 ft 6 in WEIGHT: 137 lb 0 oz DATE OF STUDY: 06/14/[address]: Keanu Sneed MD 2-DIMENSIONAL: YES M.MODE: YES DOPPLER: YES COLOR FLOW: YES TDS: PORTABLE: DEFINITY: BUBBLE STUDY: DIAGNOSIS: CONGESTIVE HEART FAILURE CARDIAC HISTORY: CATHERIZATION: NO SURGERY: NO PROSTHETIC VALVE: NO PACEMAKER: NO MEASUREMENTS (cm) DIASTOLIC (NORMALS) SYSTOLIC (NORMALS) IVSd 1.5 (0.6-1.2) LA Diam 4.7 (1.9-4.0) LVEF 39% LVIDd 6.0 (3.5-5.7) LVIDs 4.8 (2.0-3.5) %FS 19% LVPWd 1.5 (0.6-1.2) Ao Diam 2.6 (2.0-3.7) 2 DIMENSIONAL ASSESSMENT: RIGHT ATRIUM: NORMAL LEFT ATRIUM: DILATED RIGHT VENTRICLE: NORMAL LEFT VENTRICLE: LEFT VENTRICULAR HYPERTROPHY TRICUSPID VALVE: NORMAL MITRAL VALVE: NORMAL PULMONIC VALVE: NORMAL AORTIC VALVE: NORMAL PERICARDIAL EFFUSION: NONE AORTIC ROOT: NORMAL LEFT VENTRICULAR WALL MOTION: MODERATE GLOBAL HYPOKINESIS DOPPLER/COLOR FLOW: MILD AORTIC, MITRAL AND TRICUSPID REGURGITATION. ESTIMATED RIGHT VENTRICULAR SYSTOLIC PRESSURE 50 mmHg (PULMONARY HYPERTENSION). COMMENTS: DEPRESSED LEFT VENTRICULAR EJECTION FRACTION. DILATED LEFT ATRIUM. LEFT VENTRICULAR HYPERTROPHY. MILD AORTIC, MITRAL AND TRICUSPID REGURGITATION. MODERATE PULMONARY HYPERTENSION. TECHNOLOGIST: ADRIANE SRINIVASAN
[2017-06-14 17:42] LABS: RBC Red Blood Cell Count 2.96 M/uL (3.86-4.86)
[2017-06-14] MEDS: PANTOPRAZOLE 40 MG INJ IVP SCH (20:26)
[2017-06-14] MEDS: ROSUVASTATIN 10 MG TAB PO SCH (20:26)
[2017-06-14] MEDS ORDERED: HOME MED 1 EA UNK (Rosuvastatin Calcium [Crestor] 20 MG) PO SCH (21:00)
[2017-06-14] MEDS ORDERED: FUROSEMIDE 20 MG/ 2ML VIAL IV SCH (21:00)
[2017-06-14] MEDS: FUROSEMIDE 20 MG/ 2ML VIAL IV SCH (21:21)
[2017-06-15] MEDS: FUROSEMIDE 20 MG/ 2ML VIAL IV SCH (01:06)
[2017-06-15 03:49] LABS: Absolute Lymphocytes (CBC) 1.2 K/uL (0.7-4.9); Absolute Monocytes 0.8 K/uL (0.1-1.3); Absolute Neutrophil 8.3 K/uL (1.8-8.0); Basophils % 0.7 % (0-1.3); Eosinophils % 0.3 % (0-4.4); Lymphocytes % 11.6 % (15.3-44.8); MCH 25.5 pg (27.0-35.0); MCV 79.6 fL (80-100); MPV 7.9 fL (7.6-11.3); Monocytes % 7.9 % (3.3-12.3); RBC Red Blood Cell Count 3.39 M/uL (3.86-4.86)
[2017-06-15 03:58] LABS: Albumin 2.9 g/dL (3.2-5.5); Bilirubin Total 0.9 mg/dL (0.3-1.2); Protein, Total 6.2 g/dL (6.0-8.3)
[2017-06-15 04:04] LABS: Potassium 2.7 mEq/L (3.6-5.0)
--- NOTE | 2017-06-15 08:10 | EKG ---
Test Date: 2017-06-15 Test Time: 07:42:12 Aligner Typewriter: MAREK MEASUREMENT RESULTS: Intervals: Rate: 97 NE: 150 QRSD: 106 QT: 406 QTc: 515 [place]: P: 88 NE: 150 QRS: 64 T: 264 INTERPRETIVE STATEMENTS: Normal sinus rhythm Biatrial enlargement Left ventricular hypertrophy with repolarization abnormality Prolonged QT Abnormal ECG Compared to ECG 06/14/2017 14:37:24 No significant changes Electronically Signed On 06-15-17 08:10:06 CDT by Misael Sierra
--- NOTE | 2017-06-15 08:24 | RAD REPORT ---
EXAM DESCRIPTION: RAD - Chest Single View - 06/15/2017 6:50 am CLINICAL HISTORY: Chest pain COMPARISON: 06/14/2017, 05/19/2017 FINDINGS: Portable technique limits examination quality. The lungs are mildly emphysematous but clear of acute infiltrate. The heart is mildly prominent in si ze. No displaced fractures. IMPRESSION: Mild COPD.
[2017-06-15] MEDS ORDERED: HOME MED 1 EA UNK (Fluticasone/Vilanterol [Breo Ellipta 100-25 Mcg Inh] 1 PUFF) IH SCH (09:00)
[2017-06-15] MEDS: SPIRONOLACTONE 25 MG TABLET PO SCH (09:00)
[2017-06-15] MEDS ORDERED: ALBUTEROL SULFATE IH SCH (09:00)
[2017-06-15] MEDS ORDERED: HOME MED 1 EA UNK (Umeclidinium Bromide [Incruse Ellipta] 1 PUFF) IN SCH (09:00)
--- NOTE | 2017-06-15 09:02 | P.DS ---
Admission Date: 06/14/17 Discharge Date: 06/15/17 Primary Care Provider: Sabiha Disposition: ROUTINE DISCHARGE Discharge Condition: GOOD Reason for Admission: Lower GI Bleed - Problems (1) Lower GI bleed Current Visit: Yes Status: Acute (2) CHF exacerbation Onset Date: 03/20/17 Current Visit: No Status: Acute (3) HTN (hypertension) Onset Date: 10/09/16 Current Visit: No Status: Acute Qualifiers: Hypertension type: essential hypertension (4) PVD (peripheral vascular disease) Onset Date: 05/17/17 Current Visit: No Status: Acute (5) COPD (chronic obstructive pulmonary disease) Current Visit: Yes Status: Acute Qualifiers: COPD type: chronic bronchitis Chronic bronchitis type: simple Qualified Code(s): J41.0 - Simple chronic bronchitis Brief History of Present Illness: Patient has a history of pvd. Has been worked up in the past by Dr. Perla. For the past few days she has been having increased pain in the Left lower leg. she has been getting worse and came to the ER. She was found to be anemic with a guiac postive stool. The patient was not complaining of any chest pain or shortness of breath. She was recently in the ER with leg swelling. The patient had also been having some constipations. She has been using OTC laxatives for this. Vital Signs/Physical Exam: Temp Pulse Resp BP Pulse Ox 98.1 F 92 H 16 106/57 L 96 06/15/17 08:00 06/15/17 08:00 06/15/17 08:00 06/15/17 08:00 06/15/17 08:00 Laboratory Data at Discharge: WBC 10.5 K/uL (4.3-10.9) D 06/15/17 03:31 Hgb 8.7 g/dL (12.0-15.0) L 06/15/17 03:31 Hct 27.0 % (36.0-45.0) L 06/15/17 03:31 Plt Count 382 K/uL (152-406) 06/15/17 03:31 PT 14.1 SECONDS (9.5-12.5) H 06/14/17 13:48 INR 1.19 06/14/17 13:48 APTT 25.7 SECONDS (24.3-36.9) 06/14/17 13:48 Sodium 131 mEq/L (135-145) L 06/15/17 03:31 Potassium 2.7 mEq/L (3.6-5.0) L* 06/15/17 03:31 BUN 18 mg/dL (6-20) 06/15/17 03:31 Creatinine 1.01 mg/dL (0.44-1.00) H 06/15/17 03:31 Glucose 150 mg/dL (65-120) H 06/15/17 03:31 Magnesium 1.8 mg/dL (1.8-2.5) 06/14/17 13:48 Total Bilirubin 0.9 mg/dL (0.3-1.2) 06/15/17 03:31 AST 23 IU/L (10-42) 06/15/17 03:31 ALT 13 IU/L (10-60) 06/15/17 03:31 Alkaline Phosphatase 63 IU/L (42-121) 06/15/17 03:31 Troponin I 0.42 ng/mL (<0.03) H* 06/15/17 01:43 B-Natriuretic Peptide 2590 pg/ml (<=100) H 06/15/17 03:31 Home Medications: Albuterol Sulfate [Proair Hfa] 1 puff IH DAILY 10/08/16 Rosuvastatin Calcium [Crestor] 20 mg PO BEDTIME 10/08/16 Fluticasone/Vilanterol [Breo Ellipta 100-25 Mcg INH] 1 puff IH DAILY 03/19/17 Umeclidinium [place] [Incruse Ellipta] 1 puff IN DAILY 03/19/17 Bupropion HCl [Wellbutrin Xl] 150 mg PO DAILY #90 tab.er.24h 03/21/17 Furosemide [Lasix] 40 mg PO DAILY #90 tablet 03/21/17 Spironolactone 25 mg PO DAILY #90 tablet 03/21/17 Clopidogrel Bisulfate [Plavix*] 1 tab PO DAILY 05/10/17 Levofloxacin [Levaquin] 750 mg PO DAILY 7 Days #7 tablet 06/15/17 New Medications: Levofloxacin [Levaquin] 750 mg PO DAILY 7 Days #7 tablet Followup: Conner Landis MD [Primary Care Provider] - 1-2 Weeks
[2017-06-15] MEDS: BUPROPION HCL XL 150 MG TAB PO SCH (09:14)
[2017-06-15] MEDS: PANTOPRAZOLE 40 MG INJ IVP SCH ×2 (09:14→20:33)
[2017-06-15] MEDS: FUROSEMIDE 40 MG TABLET PO SCH (09:14)
[2017-06-15] MEDS: KCL 20 MEQ/100 mL IVPB 20 MEQ/100 ML BAG IV SCH (09:15)
--- NOTE | 2017-06-15 09:28 | P.PN ---
Subjective Date of Service: 06/15/17 Primary Care Provider: Sabiha Chief Complaint: Lower GI Bleed Subjective: No new changes Review of Systems 10-point ROS is otherwise unremarkable Physical Examination - Vital Signs Temperature: 98.1 F Blood Pressure: 106/57 Pulse: 92 Respirations: 16 Pulse Ox (%): 96 - Physical Exam General: Alert, In no apparent distress HEENT: Atraumatic, PERRLA, EOMI Neck: Supple, JVD not distended Respiratory: Clear to auscultation bilaterally, Normal air movement Cardiovascular: Regular rate/rhythm, Normal S1 S2 Gastrointestinal: Normal bowel sounds, No tenderness Musculoskeletal: No tenderness Integumentary: No rashes Neurological: Normal speech, Normal tone, Normal affect Lymphatics: No axilla or inguinal lymphadenopathy - Studies Laboratory Data (last 24 hrs) 06/14/17 14:45: Troponin I 0.36 H 06/14/17 13:48: PT 14.1 H, INR 1.19, APTT 25.7 06/14/17 13:48: WBC 13.4 H, Hgb 7.3 L*, Hct 23.7 L, Plt Count 462 H 06/14/17 13:48: B-Natriuretic Peptide 3866 H 06/14/17 13:48: Sodium 129 L, Potassium 3.2 L, BUN 18, Creatinine 1.01 H, Glucose 121 H, Magnesium 1.8, Total Bilirubin 0.9, AST 33, ALT 15, Alkaline Phosphatase 69 Assessment & Plan - Problems (Diagnosis) (1) Lower GI bleed Current Visit: Yes Status: Acute Plan: Will consult her regular gi Dr. Lane. check reticulocyte count and iron studies. Will transfuse 1 unit prbc. (2) CHF exacerbation Onset Date: 03/20/17 Current Visit: No Status: Acute Qualifiers: Heart failure type: diastolic Qualified Code(s): I50.33 - Acute on chronic diastolic (congestive) heart failure (3) HTN (hypertension) Onset Date: 10/09/16 Current Visit: No Status: Acute Plan: Stable will continue home medications Qualifiers: Hypertension type: essential hypertension (4) PVD (peripheral vascular disease) Onset Date: 05/17/17 Current Visit: No Status: Acute Plan: Will consult Dr. Sierra. have held her anticoagulants due to lower gi bleed. (5) COPD (chronic obstructive pulmonary disease) Current Visit: Yes Status: Acute Plan: Has been stable, no wheezing. Has stopped smoking. Will continue home meds Qualifiers: COPD type: chronic bronchitis Chronic bronchitis type: simple Qualified Code(s): J41.0 - Simple chronic bronchitis Discharge Plan: Home Plan to discharge in: 24 Hours - Code Status/Comfort Care Code Status Assessed: Yes Code Status: Full Code Physician Review: Patient Assessed, Agree with Above Assessment and Plan Critical Care: No Time Spent Managing Pts Care (In Minutes): 20
--- NOTE | 2017-06-15 13:36 | CON ---
History Of Present Illness: Ms. Gutierrez was out, rushing around, doing a lot of shopping. She was w alking more than she usually does when her left leg started hurting. She took a wheelchair ride to h er car. Fifteen minutes later it resolved. Since she has been in the hospital, the pain has not com e back. She is known to have severe peripheral vascular disease. She has chronic claudication. The claudication she had yesterday seems to be about in line with what usually happens to her, although she was more anemic than usual and she was using her legs more than usual. Her typical day does not include rushing and doing a lot of shopping and walking. She has had been given the option of underg oing a revascularization procedure. I am not sure what Dr. Perla was thinking, but based on the an giogram reports, I would think that, the most likely thing I will recommend is a surgical approach to it, perhaps a fem to fem bypass. I am not sure that it could be re-opened using transcutaneous tech niques. The patient also has coronary heart disease. She has undergone intracoronary stent placemen t as recently as April of this year. She has had a carotid angiogram as well. She had a RCA stent i n late April of this year. She has had angiograms of the carotids, aorta, and all the coronary arter ies all this year. She is not having chest pain. Her home medications since the stent has been aspi rin and Plavix and amoxicillin. Her er outpatient medications have been aspirin and Plavix. Laboratory Exam: Since being here shows a hemoglobin of 8.7. Apparently, she received 2 units of transfusion. I am not sure what her discharge medicines will be. Dr. Landis is giving her presently rosuvastatin, spironolactone, potassium chloride, furosemide, and albuterol. Impression: The patient's bleeding and heart disease together make for a very unfavorable combinatio n. I am worried that she will end up requiring bypass surgery, but I believe it is okay for her to b e discharged today, see Dr. Perla Sunday, consider revascularizing the leg artery, re-evaluating e heart. Knowing that she can't take the anticoagulants, I think her risk of having problem are extr sameer high if she is not on those, so we will make sure she sees Dr. Perla on Sunday. LACEY/JESUSITA Voice ID: [id number] Report ID: [id number]
[2017-06-15] MEDS: ROSUVASTATIN 10 MG TAB PO SCH (20:33)
[2017-06-15] MEDS: ACETAMINOPHEN 500 MG TAB PO PRN (20:36)
[2017-06-15] MEDS ORDERED: POTASSIUM 25 MEQ EFFERV TAB PO ONE (23:33)
[2017-06-16 06:29] LABS: Absolute Lymphocytes (CBC) 1.3 K/uL (0.7-4.9); Absolute Monocytes 0.9 K/uL (0.1-1.3); Absolute Neutrophil 8.1 K/uL (1.8-8.0); Basophils % 0.9 % (0-1.3); Eosinophils % 1.1 % (0-4.4); Hematocrit 27.2 % (36.0-45.0); Lymphocytes % 12.8 % (15.3-44.8); MCH 25.5 pg (27.0-35.0); MCV 79.9 fL (80-100); MPV 7.7 fL (7.6-11.3); Monocytes % 8.5 % (3.3-12.3)
[2017-06-16 07:11] LABS: Albumin 2.3 g/dL (3.2-5.5); Bilirubin Total 0.7 mg/dL (0.3-1.2); Protein, Total 5.9 g/dL (6.0-8.3)
[2017-06-16] MEDS: BUPROPION HCL XL 150 MG TAB PO SCH (09:15)
[2017-06-16] MEDS: CLOPIDOGREL 75 MG TABLET PO SCH (09:15)
[2017-06-16] MEDS: SPIRONOLACTONE 25 MG TABLET PO SCH (09:15)
[2017-06-16] MEDS: PANTOPRAZOLE 40 MG INJ IVP SCH ×2 (09:15→21:03)
[2017-06-16] MEDS: FUROSEMIDE 40 MG TABLET PO SCH (09:15)
[2017-06-16] MEDS: ROSUVASTATIN 10 MG TAB PO SCH ×2 (11:00→21:03)
--- NOTE | 2017-06-16 13:37 | PN ---
Ms. Gutierrez had an ostial RCA stent, right coronary artery stent in April of this year. I feel it is important for us to make an attempt to resume the Plavix. It is way too early to consider it safe t o stop. She has been on IV Protonix for 48 hours. I want to make an attempt to restart it and will watch H and H carefully and not let her be an outpatient. LACEY/JESUSITA Voice ID: [id number] Report ID: [id number]
--- NOTE | 2017-06-16 15:49 | PN ---
Date of Progress Note: 06/16/2017 Subjective: The patient seen and examined. Chart reviewed and case discussed with RN and Dr. Sierra. The patient states her pain is tolerable. Review of Systems: Negative except as above. Medications: Reviewed. Physical Examination: Vital Signs: Temperature 98.1, heart rate 91, blood pressure 131/59, respirations 18, O2 96% on room air. General: Awake, alert, oriented x3. No acute distress. Elderly female. CVS: S1, S2. Peripheral pulses weak bilaterally. Regular rate and rhythm. Respiratory: Moving air well bilaterally. No wheezing. No stridor. Gastrointestinal: Abdomen is soft, nontender, nondistended. Positive bowel sounds. Extremities: No clubbing, cyanosis, edema. Neurologic: Nonfocal. Laboratory Data: Sodium 131, potassium 4, chloride 96, CO2 28, BUN 16, creatinine 0.96, glucose 97, calcium 8.7, albumin 2.3. WBC 10.5, H and H 8.7 and 27.2, platelets 397, neutrophils 76%. Assessment And Plan: A 77-year-old female with: 1. Lower gastrointestinal bleed. We will monitor H and H. The patient was transfused [address] De Jesus covering for GI. 2. Diastolic congestive heart failure, acute on chronic. We will continue diuresis and congestive heart failure guidelines. Appreciate Cardiology input. 3. Peripheral vascular disease. Anticoagulants have been held in the setting of GI bleed. 4. Essential hypertension, stable. 5. Chronic obstructive pulmonary disease, chronic bronchitis. We will continue breathing treatment. 6. Severe protein-calorie malnutrition. Albumin is 2.3. 7. Hypokalemia, corrected. 8. Hyponatremia. Continue to monitor free fluid restriction. GI DVT prophylaxis with GI SCDs. No chemical anticoagulation due to GI bleed. SA/MODL Voice ID: [id number] Report ID: [id number] SAE
[2017-06-16] MEDS: METOPROLOL TAR 25 MG TAB PO SCH (17:26)
[2017-06-16] MEDS: ACETAMINOPHEN 500 MG TAB PO PRN (23:07)
[2017-06-17] MEDS ORDERED: ZOLPIDEM TARTRATE 5 MG TABLET PO ONE (02:50)
[2017-06-17 05:25] LABS: Absolute Lymphocytes (CBC) 1.2 K/uL (0.7-4.9); Absolute Neutrophil 8.6 K/uL (1.8-8.0); Basophils % 0.8 % (0-1.3); Eosinophils % 0.7 % (0-4.4); Hematocrit 26.9 % (36.0-45.0); Lymphocytes % 11.2 % (15.3-44.8); MCH 25.3 pg (27.0-35.0); MCV 80.1 fL (80-100); MPV 7.8 fL (7.6-11.3); RBC Red Blood Cell Count 3.36 M/uL (3.86-4.86)
[2017-06-17] MEDS: METOPROLOL TAR 25 MG TAB PO SCH (05:49)
[2017-06-17 06:19] LABS: Absolute Lymphocytes (CBC) 1.4 K/uL (0.7-4.9); Absolute Neutrophil 8.4 K/uL (1.8-8.0); Basophils % 0.7 % (0-1.3); Eosinophils % 0.5 % (0-4.4); Hematocrit 28.2 % (36.0-45.0); Lymphocytes % 12.7 % (15.3-44.8); MCH 25.3 pg (27.0-35.0); MCV 80.4 fL (80-100); MPV 7.8 fL (7.6-11.3); Monocytes % 9.4 % (3.3-12.3); RBC Red Blood Cell Count 3.51 M/uL (3.86-4.86)
[2017-06-17 06:52] LABS: Albumin 2.2 g/dL (3.2-5.5); Bilirubin Total 0.8 mg/dL (0.3-1.2); Protein, Total 6.1 g/dL (6.0-8.3)
[2017-06-17 07:20] VITALS: BMI 23.9
[2017-06-17 07:26] VITALS: O2SAT 98
[2017-06-17] MEDS: SPIRONOLACTONE 25 MG TABLET PO SCH (10:10)
[2017-06-17] MEDS: BUPROPION HCL XL 150 MG TAB PO SCH (10:10)
[2017-06-17] MEDS: CLOPIDOGREL 75 MG TABLET PO SCH (10:10)
[2017-06-17] MEDS: PANTOPRAZOLE 40 MG INJ IVP SCH (10:10)
[2017-06-17] MEDS: FUROSEMIDE 40 MG TABLET PO SCH (10:11)
[2017-06-17 11:56] LABS: Hematocrit 28.8 % (36.0-45.0)
[2017-06-17 14:09] VITALS: BP 117/58; TEMP 99.8
--- NOTE | 2017-06-17 18:13 | CON ---
Ms. Gutierrez seems to be doing better. She does not seem to have had her hemoglobin fall much. She h as been on IV Protonix and tolerating the Plavix okay. We may be able to get her on oral Protonix in order to go home. Dr. Gregory will see her tomorrow. Dr. De Jesus is reluctant to do any procedures, bu t I think we need to know what is going on in her stomach and esophagus, colon, before we feel comfor table about continuing anticoagulant therapy on her. LACEY/JESUSITA Voice ID: [id number] Report ID: [id number]
--- NOTE | 2017-06-18 01:45 | DS ---
Date of Discharge: 06/17/2017 Additional Consultants: 1.Dr. De Jesus, GI. 2.Dr. Sierra, Cardiology. Admitting Diagnoses: 1.Lower gastrointestinal bleed. 2.Congestive heart failure exacerbation. 3.Hypertension. 4.Peripheral vascular disease. 5.Chronic obstructive pulmonary disease. Discharge Diagnoses: 1.Lower gastrointestinal bleed, transfusing 1 unit PRBCs. No further bleeding. H and H stable. 2.Diastolic congestive heart failure, acute on chronic, improved. 3.Peripheral vascular disease. The patient restarted on Plavix by Cardiology. No further bleeding. 4.Essential hypertension. 5.Chronic obstructive pulmonary disease, chronic bronchitis. 6.Severe protein-calorie malnutrition. Albumin 2.3. 7.Hypokalemia, corrected. 8.Hyponatremia, improving. Hospital Course: The patient is a 77-year-old female, Dr. Landis's patient, for whom the [facility] is covering, was admitted to the hospital for lower gastrointestinal bleed. The patient was fou nd to have low H and H of 7.3. The patient was transfused PRBCs and her hemoglobin improved. The pa tran's GI was unavailable. However, the patient did not have any further GI bleeding. The patient' s Plavix had been held and Cardiology was consulted regarding restarting the Plavix. Dr. Sierra felt that patient could be started on her Plavix and did well with the Plavix. The patient was doing wel l. Her vital signs were stable. She was afebrile. She did not have any dizziness or lightheadednes s. The patient was able to ambulate in the hallway without any difficulty, without any drop in her b lood pressure or dizziness. The patient does not feel fatigued. The patient was then discharged irma in a stable condition. Activity: As tolerated. Medications: As per medication reconciliation list. Followup: Follow up with primary care physician, Dr. Landis in 2-3 days. Follow up with RAMON Garcia in 2 weeks. Return to ER for worsening condition. Total time spent discharging patient was 36 minutes. Physical Examination: General: Awake, alert, oriented, in no acute distress. CV: S1, S2. No murmurs. Respiratory: Moving air well bilaterally. No wheezing. Abdomen: Soft, nontender, nondistended. Positive bowel sounds. Extremities: No clubbing, cyanosis, or edema. Neurologic: Nonfocal. SA/MODL Voice ID: [id number] Report ID: [id number]
== END 2017-06-17 13:51 | disposition home or self-care (01) | DRG 377 ==
LOC: ER 10:44 → ERHOLD 14:56 → 2ND 16:12
PROVIDERS: ADMIT Internal Medicine; ATTEND Internal Medicine
DX: K92.2 Gastrointestinal hemorrhage, unspecified (principal); I50.33 Acute on chronic diastolic (congestive) heart failure; E43 Unspecified severe protein-calorie malnutrition; E87.1 Hypo-osmolality and hyponatremia; E87.6 Hypokalemia; J44.9 Chronic obstructive pulmonary disease, unspecified; I10 Essential (primary) hypertension; I73.9 Peripheral vascular disease, unspecified; F17.200 Nicotine dependence, unspecified, uncomplicated; Z68.24 Body mass index [BMI] 24.0-24.9, adult
CPT/HCPCS: 36415; 71045; 80048; 80053; 80076; 81003; 82550; 82553; 83540; 83735; 83880; 84132; 84466; 84484; 85014; 85018; 85025; 85044; 85610; 85730; 86850; 86900; 86901; 93005; 93306; 93926; 96361; 96374; 96375; 99285; C9113; J1940; P9016